=== PATIENT | male | born 1945 | race Caucasian/White ===

== ENCOUNTER 2019-12-18 05:56 | Day surgery (SDC) | payer OTHER ==
[~2019-12-18 05:56] MED LIST: ZESTRIL10 M1 PO
[2019-12-18] MEDS ORDERED: PERCOCET 5-3251 EACH PO (14:47)
[2019-12-18] MEDS ORDERED: NEURONTIN600 M1 PO (14:48)
[2019-12-18] MEDS ORDERED: COLACE100 MG PO (14:49)
== END 2019-12-18 17:34 | disposition home or self-care (01) ==
LOC: CIR.AMB 05:56
PROVIDERS: ATTEND Surgery
DX: K40.90 Unilateral inguinal hernia, without obstruction or gangrene, not specified as recurrent (principal)

== ENCOUNTER 2020-05-01 10:07 | Outpatient (CLI) | payer OTHER ==
[~2020-05-01 10:07] MED LIST changes: +COLACE100 MG PO; +NEURONTIN600 M1 PO; +PERCOCET 5-3251 EACH PO
== END 2020-05-01 10:13 | disposition home or self-care (01) ==
LOC: SONOGRAMA 10:07 → MAMO-SONO 10:15
PROVIDERS: ATTEND Urology
DX: C64.1 Malignant neoplasm of right kidney, except renal pelvis (principal)

== ENCOUNTER 2020-12-15 13:00 | Outpatient (CLI) | payer OTHER | END 2020-12-15 13:05 | disposition home or self-care (01) | LOC: SONOGRAMA 13:00 → MAMO-SONO 13:15 | PROVIDERS: ATTEND Urology | DX: R97.20 Elevated prostate specific antigen [PSA] (principal); C64.1 Malignant neoplasm of right kidney, except renal pelvis ==

== ENCOUNTER 2021-12-23 13:10 | Outpatient (CLI) | payer OTHER | END 2021-12-23 13:11 | disposition home or self-care (01) | LOC: SONOGRAMA 13:10 | PROVIDERS: ATTEND Urology | DX: R97.20 Elevated prostate specific antigen [PSA] (principal); C64.1 Malignant neoplasm of right kidney, except renal pelvis ==